=== PATIENT | male | born 1940 | race Caucasian/White ===

== ENCOUNTER 2017-05-08 14:23 | Emergency (ER) ==
[2017-05-08 14:33] VITALS: BP 166/91; TEMP 97; BMI 30.1
--- NOTE | 2017-05-08 15:46 | ED.PDOC ---
General ED Provider: Dr. 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) Mode of Arrival: Walk-In Information Source: Patient Exam Limitations: No limitations Primary Care Provider: NICOLE COLEMAN Nursing and Triage Documentation Reviewed and Agree: Yes Reviewed sepsis parameters & appropriate labs ordered?: Yes (INJURY BY THI METAL ) System Inflammatory Response Syndrome: Not Applicable Sepsis Protocol: For patient's 13 years and over: Temp is 96.8 and below OR 101 and greater Pulse >90 BPM Resp >20/minute Acutely Altered Mental Status Are patient's symptoms suggestive of a new infection, such as: -Pneumonia -Skin, Soft Tissue -Endocarditis -UTI -Bone, Joint Infection -Implantable Device -Acute Abdominal Infection -Wound Infection -Meningitis -Blood Stream Catheter Infection -Unknown Skin Complaint Exam - Lac/Torso/Upper Ext. Complaint/Exam Location of Injury: Right (INDEX ) Mechanism of Injury: Laceration Onset/Duration: 2 HRS NOW Symptoms Are: Still present Initial Severity: Mild Current Severity: Mild Aggravating: None Alleviating: None Associated Signs and Symptoms: Denies: Fever, Chills, Erythema, Numbness, Tingling Differential Diagnoses: Laceration (SEE PHOTO) Review of Systems - Review Of Systems Constitutional: Reports: No symptoms Eyes: Reports: No symptoms Ears, Nose, Mouth, Throat: Reports: No symptoms Respiratory: Reports: No symptoms Cardiac: Reports: No symptoms GI: Reports: No symptoms : Reports: No symptoms Musculoskeletal: Reports: No symptoms Skin: Reports: Other (LACERATION RIGHT INDEX) Neurological: Reports: No symptoms Endocrine: Reports: No symptoms Hematologic/Lymphatic: Reports: No symptoms All Other Systems: Reviewed and Negative Past Medical History - Past Medical History Previously Healthy: Yes Endocrine: Reports: None Cardiovascular: Reports: None Respiratory: Reports: None Hematological: Reports: None Gastrointestinal: Reports: None Genitourinary: Reports: None Neuro/Psych: Reports: None Musculoskeletal: Reports: None Cancer: Reports: None - Surgical History General Surgical History: Reports: None - Family History Family History: Reports: None - Social History Smoking Status: Current some day smoker Hx Substance Use: No Alcohol Screening: Occasionally - Immunizations Tetanus Shot up to Date: No Physical Exam - Physical Exam Appearance: Well-appearing, No pain distress, Well-nourished Eyes: CESAR, EOMI, Conjunctiva clear ENT: Ears normal, Nose normal, Oropharynx normal Respiratory: Airway patent, Breath sounds clear, Breath sounds equal, Respirations nonlabored Cardiovascular: RRR, Pulses normal, No rub, No murmur GI/: Soft, Nontender, No masses, Bowel sounds normal, No Organomegaly Musculoskeletal: Normal strength (RIGHT INDEX DORATL ASPECT 3 MM LACERATION) Skin: Warm, Dry, Normal color Neurological: Sensation intact, Motor intact, Reflexes intact, Cranial nerves intact, Alert, Oriented Psychiatric: Affect appropriate, Mood appropriate Procedures - Laceration/Wound Repair No standard instances Wound Description: Linear ( R/INDEX) Wound Length (cm): 3MM Wound Width: 1MM Wound Depth: 1MM Wound Explored: Clean Wound Prep: Hibiclens Wound Repaired With: Dermabond Sterile Dressing Applied?: Yes Critical Care Note - Critical Care Note Total Time (mins): 0 Course - Course Vital Signs: Temp Pulse Resp BP Pulse Ox 05/08/17 14:24 97 F L 69 16 166/91 H 97 Departure - Departure Time of Disposition: 15:47 Disposition: HOME SELF-CARE Discharge Problem: Laceration - injury Instructions: Laceration (ED), Skin Adhesive Care (ED) Condition: Good Pt referred to PMD for follow-up: Yes Additional Instructions: Please call your Family Physician as soon as possible to schedule a follow-up appointment. Allergies/Adverse Reactions: Allergies No Known Allergies Allergy (Unverified 05/08/17 14:34)
[2017-05-08] MEDS ORDERED: TETANUS DIPHTHERIA TOXOIDS IM ONE (15:48)
== END 2017-05-08 16:24 | disposition home or self-care (01) ==
LOC: ED 14:23
DX: S61.210A Laceration without foreign body of right index finger without damage to nail, initial encounter (principal); F17.210 Nicotine dependence, cigarettes, uncomplicated; W26.8XXA Contact with other sharp object(s), not elsewhere classified, initial encounter
CPT/HCPCS: 90471; 90714; 99283

== ENCOUNTER 2017-07-05 10:19 | Outpatient (CLI) | END 2017-07-05 10:20 | disposition home or self-care (01) | LOC: RHC-LAB 10:19 | PROVIDERS: ATTEND Emergency Medicine | DX: J06.9 Acute upper respiratory infection, unspecified (principal) | CPT/HCPCS: 87804 ==

== ENCOUNTER 2017-11-29 12:18 | Outpatient (CLI) | END 2017-11-29 12:19 | disposition home or self-care (01) | LOC: RHC-LAB 12:18 | PROVIDERS: ATTEND Emergency Medicine | DX: R19.7 Diarrhea, unspecified (principal); I10 Essential (primary) hypertension; G30.8 Other Alzheimer's disease | CPT/HCPCS: 36415; 80053; 85025 ==

== ENCOUNTER 2017-12-03 12:40 | Outpatient (CLI) | END 2017-12-03 12:41 | disposition home or self-care (01) | LOC: RHC-LAB 12:40 | PROVIDERS: ATTEND Emergency Medicine | DX: E11.9 Type 2 diabetes mellitus without complications (principal); G30.8 Other Alzheimer's disease; E78.5 Hyperlipidemia, unspecified | CPT/HCPCS: 36415; 80061; 83036; 84443 ==

== ENCOUNTER 2018-02-11 12:17 | Outpatient (CLI) | END 2018-02-11 12:18 | disposition home or self-care (01) | LOC: RHC-LAB 12:17 | PROVIDERS: ATTEND Nurse Practitioner Family | DX: E11.9 Type 2 diabetes mellitus without complications (principal); I10 Essential (primary) hypertension; E78.5 Hyperlipidemia, unspecified | CPT/HCPCS: 36415; 80053; 80061; 83036; 84443; 85025 ==

== ENCOUNTER 2018-03-04 12:39 | Outpatient (CLI) | END 2018-03-04 12:40 | disposition home or self-care (01) | LOC: RHC-LAB 12:39 | PROVIDERS: ATTEND Nurse Practitioner Family | DX: R31.9 Hematuria, unspecified (principal); Z12.5 Encounter for screening for malignant neoplasm of prostate | CPT/HCPCS: 36415; 81001 ==

== ENCOUNTER 2018-05-21 08:13 | Outpatient (CLI) | END 2018-05-21 08:14 | disposition home or self-care (01) | LOC: RHC-LAB 08:13 | PROVIDERS: ATTEND Nurse Practitioner Family | DX: E11.9 Type 2 diabetes mellitus without complications (principal); E78.00 Pure hypercholesterolemia, unspecified; Z12.5 Encounter for screening for malignant neoplasm of prostate | CPT/HCPCS: 36415; 80053; 80061; 83036 ==

== ENCOUNTER 2018-10-02 08:45 | Outpatient (CLI) | END 2018-10-02 08:46 | disposition home or self-care (01) | LOC: RHC-LAB 08:45 | PROVIDERS: ATTEND Family Medicine | DX: E11.9 Type 2 diabetes mellitus without complications (principal); I10 Essential (primary) hypertension; E78.5 Hyperlipidemia, unspecified | CPT/HCPCS: 36415; 80053; 80061; 83036 ==